=== PATIENT | female | born 1975 | race Two or more races ===

== ENCOUNTER 2017-03-14 05:30 | Emergency (ER) | payer MEDICAID, OTHER ==
[~2017-03-14] VITALS: Ht 162.6 cm; Wt 61.2 kg
--- NOTE | 2017-03-14 06:05 | NUR ---
PT A/OX4 BREATHING EFFORTLESSLY ON ROOM AIR, PT STATES SHE HAS BEEN HAVING UPPER LEFT ABD PAIN X 1 DAY WITH N/V AND DIARRHEA, PT ON MONITOR, URINE COLLECTED AND SENT TO LAB, MADE AWARE WILL CONTINUE TO MONITOR.
[2017-03-14 06:17] VITALS: BP 128/78
== END 2017-03-14 06:18 | disposition home or self-care (01) ==
LOC: ER 05:36
DX: A08.4 Viral intestinal infection, unspecified (principal)
CPT/HCPCS: A4606; Z7610

== ENCOUNTER 2019-07-07 10:56 | Emergency (ER) | payer OTHER ==
[~2019-07-07] VITALS: Ht 167.6 cm; Wt 68.0 kg
--- NOTE | 2019-07-07 11:14 | NUR ---
URINED COLLECTED AND SENT TO LAB
--- NOTE | 2019-07-07 11:15 | NUR ---
Patient came in to the ER c/o dysuria on and off x 1 month. On room air, breathing evenly and unlabored. connected to the monitor and pulse ox. Kept comfortable, will continue to monitor accordingly.
[2019-07-07 11:18] LABS: APPEARANCE,URINE Clear (CLEAR); BILIRUBIN,URINE Negative (NEGATIVE); BLOOD, URINE Trace-intact Ery/uL (NEGATIVE); COLOR,URINE Yellow (YELLOW); KETONES,URINE Negative (NEGATIVE); LEUKOCYTE ESTERASE ,URINE Negative (NEGATIVE); NITRITE, URINE Negative (NEGATIVE); PROTEIN,URINE Negative (NEGATIVE); UGLUCOSE Negative (NEGATIVE); UROBILINOGEN,URINE 0.2 EU/dL (0.2)
[2019-07-07 11:22] LABS: BACTERIA,URINE Few /HPF (None Seen); SQUAMOUS EPITHELIAL CELL,UR Few /HPF (None Seen); WBC,URINE 0-2 /HPF (0-3)
[2019-07-07 12:00] VITALS: BP 142/85
--- NOTE | 2019-07-07 12:00 | NUR ---
Patient discharged to home in stable condition. Written and verbal after care instructions given. Patient verbalizes understanding of instruction.
== END 2019-07-07 12:01 | disposition home or self-care (01) ==
LOC: ER 11:05
DX: R30.0 Dysuria (principal); Z98.890 Other specified postprocedural states
CPT/HCPCS: 81000-TC; 84703-TC

== ENCOUNTER 2019-09-22 14:32 | Emergency (ER) | payer OTHER ==
[~2019-09-22] VITALS: Ht 165.1 cm; Wt 71.2 kg
[2019-09-22 16:05] VITALS: BP 138/83
--- NOTE | 2019-09-22 16:05 | NUR ---
PT AAOX4. AMBULATORY. C/O productive cough, congestion and fever x 1 week. VSS. Awaiting MD for eval. Will continue to monitor.
--- NOTE | 2019-09-22 16:34 | NUR ---
GOINT TO XRAY
== END 2019-09-22 17:13 | disposition home or self-care (01) ==
LOC: ER 14:34
DX: J20.9 Acute bronchitis, unspecified (principal); Z98.890 Other specified postprocedural states
CPT/HCPCS: 71045-TC

== ENCOUNTER 2023-05-28 11:31 | Emergency (ER) | payer OTHER ==
[~2023-05-28] VITALS: Ht 154.9 cm; Wt 68.0 kg
[2023-05-28] MEDS ORDERED: KETOROLAC TROMETHAMINE INJ 30 MG/ML VIAL ONE (12:17)
[2023-05-28] MEDS ORDERED: KETOROLAC TROMETHAMINE INJ 30 MG/ML VIAL IM ONE (12:30)
[2023-05-28 12:42] LABS: APPEARANCE,URINE CLEAR (CLEAR); BILIRUBIN,URINE NEGATIVE (NEGATIVE); BLOOD, URINE NEGATIVE Ery/uL (NEGATIVE); COLOR,URINE YELLOW (YELLOW); KETONES,URINE NEGATIVE (NEGATIVE); LEUKOCYTE ESTERASE ,URINE NEGATIVE (NEGATIVE); NITRITE, URINE NEGATIVE (NEGATIVE); PROTEIN,URINE NEGATIVE (NEGATIVE); UGLUCOSE NEGATIVE (NEGATIVE); UROBILINOGEN,URINE 0.2 EU/dL (0.2)
[2023-05-28 13:23] LABS: BASOPHILS % (AUTO) 0.4 % (0.0-2.0); EOSINOPHILS # (AUTO) 0.1 K/uL (0.0-0.7); EOSINOPHILS % (AUTO) 1.7 % (0.0-6.0); HEMATOCRIT 41 % (33-45); HEMOGLOBIN 13.4 g/dL (11.5-14.8); LYMPHOCYTES # (AUTO) 2.8 K/uL (0.8-4.8); LYMPHOCYTES % (AUTO) 39.1 % (20.0-44.0); MEAN CORPUSCULAR HEMOGLOBIN 31 PG (26.0-33.0); MEAN CORPUSCULAR HGB CONC 33 g/dl (31.0-36.0); MEAN CORPUSCULAR VOLUME 93 fL (82-100); MONOCYTES # (AUTO) 0.6 K/uL (0.1-1.30); MONOCYTES % (AUTO) 8.2 % (2.0-12.0); NEUTROPHILS # (AUTO) 3.6 K/uL (1.8-8.9); NEUTROPHILS % (AUTO) 50.6 % (43.0-81.0); PLATELET COUNT (AUTO) 183 K/uL (150-450); RED CELL DISTRIBUTION WIDTH 13.7 % (11.5-15.0); WHITE BLOOD COUNT (AUTO) 7.1 K/uL (4.3-11.0)
[2023-05-28] MEDS ORDERED: CYCLOBENZAPRINE 10 MG TABLET PO ONE (13:30)
[2023-05-28] MEDS ORDERED: ACETAMINOPHEN ES 500 MG TABLET PO ONE (13:30)
[2023-05-28 13:42] LABS: CALCIUM, SERUM 10.4 mg/dL (8.5-10.1); CREATININE 0.7 mg/dL (0.6-1.3); POTASSIUM 4.1 mmol/L (3.5-5.1)
[2023-05-28] MEDS ORDERED: CYCLOBENZAPRINE 10 MG TABLET ONE (14:16)
[2023-05-28] MEDS ORDERED: ACETAMINOPHEN ES 500 MG TABLET ONE (14:16)
[2023-05-28] MEDS ORDERED: TAMS-12 PO (14:20)
[2023-05-28] MEDS ORDERED: KETO10TA2 PO (14:20)
[2023-05-28 14:38] VITALS: BP 120/60; TEMP 98.2; O2SAT 98
== END 2023-05-28 14:38 | disposition home or self-care (01) ==
LOC: ER 11:38
DX: N20.0 Calculus of kidney (principal); R30.0 Dysuria; Z98.890 Other specified postprocedural states; Z79.899 Other long term (current) drug therapy
CPT/HCPCS: 99285; 74176; 96372; 85025; 80048; 81003; 36415; J1885

== ENCOUNTER 2023-06-02 08:47 | Emergency (ER) | payer OTHER ==
[~2023-06-02] VITALS: Ht 152.4 cm; Wt 49.9 kg
[~2023-06-02 08:47] MED LIST: KETO10TA2 PO; TAMS-12 PO
[2023-06-02] MEDS ORDERED: IV NS 0.9% 1,000 ML BAG IV ONE (09:00)
[2023-06-02] MEDS ORDERED: ACETAMINOPHEN ES 500 MG TABLET PO ONE (09:00)
[2023-06-02] MEDS ORDERED: KETOROLAC TROMETHAMINE INJ 30 MG/ML VIAL IV ONE (09:00)
[2023-06-02] MEDS ORDERED: KETOROLAC TROMETHAMINE INJ 30 MG/ML VIAL ONE (09:08)
[2023-06-02] MEDS ORDERED: ACETAMINOPHEN ES 500 MG TABLET ONE (09:08)
[2023-06-02 09:22] LABS: BASOPHILS % (AUTO) 0.5 % (0.0-2.0); EOSINOPHILS # (AUTO) 0.1 K/uL (0.0-0.7); HEMATOCRIT 41 % (33-45); HEMOGLOBIN 13.4 g/dL (11.5-14.8); LYMPHOCYTES # (AUTO) 2.6 K/uL (0.8-4.8); LYMPHOCYTES % (AUTO) 39.9 % (20.0-44.0); MEAN CORPUSCULAR HEMOGLOBIN 31 PG (26.0-33.0); MEAN CORPUSCULAR HGB CONC 33 g/dl (31.0-36.0); MEAN CORPUSCULAR VOLUME 93 fL (82-100); MONOCYTES # (AUTO) 0.5 K/uL (0.1-1.30); MONOCYTES % (AUTO) 8.4 % (2.0-12.0); NEUTROPHILS # (AUTO) 3.1 K/uL (1.8-8.9); NEUTROPHILS % (AUTO) 49.2 % (43.0-81.0); PLATELET COUNT (AUTO) 179 K/uL (150-450); RED BLOOD CELL COUNT(AUTO) 4.34 MIL/uL (4.0-5.2); RED CELL DISTRIBUTION WIDTH 13.9 % (11.5-15.0); WHITE BLOOD COUNT (AUTO) 6.4 K/uL (4.3-11.0)
[2023-06-02 09:31] LABS: APPEARANCE,URINE CLEAR (CLEAR); BILIRUBIN,URINE NEGATIVE (NEGATIVE); BLOOD, URINE NEGATIVE Ery/uL (NEGATIVE); KETONES,URINE NEGATIVE (NEGATIVE); LEUKOCYTE ESTERASE ,URINE NEGATIVE (NEGATIVE); NITRITE, URINE NEGATIVE (NEGATIVE); PROTEIN,URINE NEGATIVE (NEGATIVE); UGLUCOSE NEGATIVE (NEGATIVE); UROBILINOGEN,URINE 0.2 EU/dL (0.2)
[2023-06-02 09:39] LABS: ALBUMIN 3.8 g/dL (3.4-5.0); BILIRUBIN,DIRECT 0.1 mg/dL (0.0-0.2); BILIRUBIN,TOTAL 0.3 mg/dL (0.2-1.0); CREATININE 0.7 mg/dL (0.6-1.3); POTASSIUM 4.6 mmol/L (3.5-5.1); TOTAL PROTEIN, SERUM 7.3 g/dL (6.4-8.2)
[2023-06-02 09:44] LABS: COLOR,URINE LIGHT YELLOW (YELLOW)
[2023-06-02 09:46] LABS: PREGNANCY TEST URINE QUAL NEGATIVE (NEGATIVE)
[2023-06-02] MEDS ORDERED: LIDO30AD10 TP (10:33)
[2023-06-02 10:49] VITALS: BP 128/91; TEMP 98.4; O2SAT 99
== END 2023-06-02 10:50 | disposition home or self-care (01) ==
LOC: ER 08:47
DX: R10.9 Unspecified abdominal pain (principal)
CPT/HCPCS: 99283; 96374; 96361; 85025; 80048; 83690; 80076; 84703; 81003; 36415; J1885; J7030

== ENCOUNTER 2025-07-29 10:23 | Emergency (ER) | payer OTHER ==
[~2025-07-29] VITALS: Ht 154.9 cm; Wt 72.6 kg
[~2025-07-29 10:23] MED LIST changes: +LIDO30AD10 TP
[2025-07-29 10:38] VITALS: BP 133/84; TEMP 98.1
[2025-07-29] MEDS ORDERED: PRED50TA PO (11:50)
[2025-07-29] MEDS ORDERED: BENZ-13 PO (11:50)
[2025-07-29 12:13] VITALS: O2SAT 98
== END 2025-07-29 12:14 | disposition home or self-care (01) ==
LOC: ER 10:28
DX: R05.3 Chronic cough (principal); R07.89 Other chest pain; Z91.048 Other nonmedicinal substance allergy status
CPT/HCPCS: 71045-TC